=== PATIENT | male | born 1950 | race Caucasian/White ===

== ENCOUNTER → 2016-03-15 | Outpatient (CLI) | payer OTHER, BC ==
[~2016-03-15] MED LIST: ASPIRIN325 MG PO; ASPIRIN81 M1 PO; BENICAR; FISH OIL 1,001000 MG; FISH OIL SOFTG1 EACH PO; Fish Oil PO; HYZAAR 100-11 TABLET PO; LOSARTAN POTAS100 MG PO; Motrin PO; OCUVITE1 TABLET PO; PREDNISONE10 MG PO; TYLENOL ARTHRI650 MG PO; [UNRECOGNIZED DRUG - OTHER]
== END | disposition home or self-care (01) ==
LOC: NUC 03-11 08:00
DX: T84.498A Other mechanical complication of other internal orthopedic devices, implants and grafts, initial encounter (principal); Z96.641 Presence of right artificial hip joint
CPT/HCPCS: 78315; A9503

== ENCOUNTER → 2016-05-10 | Outpatient (CLI) | payer OTHER, BC ==
[~2016-05-10] MED LIST changes: +COUMADIN2.5 MG PO; +FERROUS SULFAT325 MG PO; +LOSARTAN-HCTZ1 EAC2 PO; +MAGNESIUM250 MG PO; +OCUVITE TABLET1 EACH PO; +PERCOCET 5/31 TABLET PO; +VISTARIL25 MG PO
== END | disposition home or self-care (01) ==
DX: R26.2 Difficulty in walking, not elsewhere classified (principal); M62.81 Muscle weakness (generalized); M25.651 Stiffness of right hip, not elsewhere classified; Z96.641 Presence of right artificial hip joint
CPT/HCPCS: 97110 GP; 97150 GO; 97161 GP; 97165 GO; G8978 GP; G8979 GP; G8980 GP; G8987 GO; G8988 GO; G8989 GO

== ENCOUNTER 2016-05-24 05:30 | Inpatient (IN) | payer OTHER, BC ==
[~2016-05-24] VITALS: Ht 188 cm; Wt 125.1 kg
[~2016-05-24 05:30] MED LIST changes: -COUMADIN2.5 MG PO; -PERCOCET 5/31 TABLET PO; -VISTARIL25 MG PO
[2016-05-24 06:13] VITALS: BP 119/61
[2016-05-24] MEDS ORDERED: VISTARIL25 MG PO (11:39)
[2016-05-24] MEDS ORDERED: COUMADIN2.5 MG PO (11:39)
[2016-05-24] MEDS ORDERED: PERCOCET 5/31 TABLET PO (11:39)
[2016-05-24 12:34] LABS: HEMATOCRIT 41.2 % (38.0-50.0); MCV 92.4 FL (86-99)
[2016-05-24 15:51] LABS: INTER. NORMALIZED RATIO 1.1; PROTHROMBIN TIME 10.7 (9.2-11.2)
[2016-05-24 18:00] VITALS: BP 122/91
[2016-05-24 18:10] LABS: HEMATOCRIT 39.4 % (38.0-50.0); MCV 92.3 FL (86-99)
[2016-05-24 20:26] VITALS: BP 117/58
[2016-05-25 00:39] VITALS: BP 118/58
[2016-05-25 06:20] LABS: INTER. NORMALIZED RATIO 1.1
[2016-05-25 06:43] VITALS: BP 123/72
[2016-05-25 08:12] VITALS: BP 129/56
[2016-05-25 13:13] LABS: HEMATOCRIT 36.9 % (38.0-50.0); MCV 94.1 FL (86-99)
[2016-05-25 16:10] VITALS: BP 117/57
[2016-05-26 00:17] VITALS: BP 141/70
[2016-05-26 06:55] LABS: INTER. NORMALIZED RATIO 1.3; PROTHROMBIN TIME 13.3 (9.2-11.2)
[2016-05-26 07:38] VITALS: BP 142/78
[2016-05-26 11:40] VITALS: BP 126/64
[2016-05-26 16:08] VITALS: BP 142/64
== END 2016-05-26 17:01 | disposition home health service (06) | DRG 468 ==
LOC: 3EAST 05:30 → 2SOUTH 05:30 → 3EAST 17:33
PROVIDERS: Orthopaedic Surgery
DX: T84.010A Broken internal right hip prosthesis, initial encounter (principal); T84.060A Wear of articular bearing surface of internal prosthetic right hip joint, initial encounter; T84.84XA Pain due to internal orthopedic prosthetic devices, implants and grafts, initial encounter; Z96.641 Presence of right artificial hip joint; I10 Essential (primary) hypertension; I48.91 Unspecified atrial fibrillation; E11.9 Type 2 diabetes mellitus without complications; Z87.891 Personal history of nicotine dependence; Z79.82 Long term (current) use of aspirin; Z88.2 Allergy status to sulfonamides; Z88.0 Allergy status to penicillin
CPT/HCPCS: 85014; 85018; 85610; 97530 GP; C1713; C1776; J0690; J3010; J7050; J7120

== ENCOUNTER → 2017-06-13 | Outpatient (CLI) | payer MEDICARE, BC ==
[~2017-06-13] MED LIST changes: +COUMADIN2.5 MG PO; +PERCOCET 5/31 TABLET PO; +VISTARIL25 MG PO
== END | disposition home or self-care (01) ==
LOC: CDC 09:41
DX: Z01.810 Encounter for preprocedural cardiovascular examination (principal); I44.0 Atrioventricular block, first degree; R94.31 Abnormal electrocardiogram [ECG] [EKG]
CPT/HCPCS: 93000